=== PATIENT | male | born 2000 | race Hispanic/Latino ===

== ENCOUNTER 2022-06-18 16:28 | Emergency (ER) | payer OTHER ==
[~2022-06-18] VITALS: Ht 177.8 cm; Wt 104.3 kg
[2022-06-18] MEDS ORDERED: BUPIVACAINE HCL 0.25% 10ML MPF VIAL INJ ONE (17:15)
[2022-06-18] MEDS ORDERED: CEPHALEXIN 500 MG CAP PO ONE (17:15)
[2022-06-18] MEDS ORDERED: KEFLEX125 MG/5 M PO (18:36)
[2022-06-18] MEDS ORDERED: ACETAMINOPHEN-1 EAC4 PO (18:36)
[2022-06-18 18:57] VITALS: BP 142/68
== END 2022-06-18 19:07 | disposition home or self-care (01) ==
LOC: ER 16:37
DX: S92.492B Other fracture of left great toe, initial encounter for open fracture (principal); W20.8XXA Other cause of strike by thrown, projected or falling object, initial encounter; Y99.0 Civilian activity done for income or pay
CPT/HCPCS: 99284